=== PATIENT | male | born 1965 ===

== ENCOUNTER 2016-07-27 09:21 | Emergency (ER) | payer OTHER ==
[2016-07-27 09:56] VITALS: RESP 18; TEMP 98.1; BMI 29.0
--- NOTE | 2016-07-27 10:05 | ED PDOC ---
Lower Extremity Pain/Injury Time Seen by Provider: 07/27/16 09:50 Chief Complaint (Nursing): Lower Extremity Problem/Injury Chief Complaint (Provider): Lower Extremity Problem/Injury History Per: Patient History/Exam Limitations: no limitations Onset/Duration Of Symptoms: Days (x6 days) Current Symptoms Are (Timing): Still Present Additional Complaint(s): 51 y/o male with a past medical history of hypertension presents to the emergency department with a complaint of an ankle pain after twisting it on 07/22/2016. States he had been experiencing pain on ambulation since the injury. Past Medical History Reviewed: Historical Data, Nursing Documentation, Vital Signs Vital Signs: Last Vital Signs Temp 98.1 F 07/27/16 09:26 Pulse 68 07/27/16 09:26 Resp 18 07/27/16 09:26 BP 180/109 H 07/27/16 09:26 Pulse Ox 98 07/27/16 09:26 - Medical History PMH: HTN (no meds x 1 week as of 07/27/16), Hypercholesterolemia - Surgical History Surgical History: No Surg Hx - Family History Family History: States: Hypertension - Home Medications Home Medications: Ambulatory Orders Medication Instructions Recorded Lisinopril 20 mg PO DAILY #30 tablet 08/08/15 Lisinopril [Zestril] 50 mg PO DAILY 08/08/15 Meclizine [Meclizine*] 25 mg PO Q6 PRN #20 tab 08/08/15 Naproxen [Naprosyn] 500 mg PO Q12H #20 tab 07/27/16 - Allergies Allergies/Adverse Reactions: Allergies Allergy/AdvReac Type Severity Reaction Status Date / Time No Known Allergies Allergy Verified 07/27/16 09:36 Review of Systems ROS Statement: Except As Marked, All Systems Reviewed And Found Negative Musculoskeletal: Positive for: Other (Left ankle pain') Physical Exam - Reviewed Nursing Documentation Reviewed: Yes Vital Signs Reviewed: Yes - Physical Exam Appears: Positive for: Well, Non-toxic, No Acute Distress Head Exam: Positive for: ATRAUMATIC, NORMOCEPHALIC Skin: Positive for: Normal Color, Warm, Dry Extremity: Positive for: Normal ROM (Full), Tenderness (Left heel tenderness and swelling). Negative for: Other (No ankle swelling or tenderness) Neurologic/Psych: Positive for: Alert, Oriented - ECG O2 Sat by Pulse Oximetry: 98 (RA) Pulse Ox Interpretation: Normal Medical Decision Making Medical Decision Making: Time: 9:50 Initial impression: Left ankle injury Initial plan: --Ankle AP LAT 2 Views LT (RAD) --Foot AP LAT LT (RAD) --Revaluation Scribe Attestation: Documented by Ayanna Duffy, acting as a scribe for Jose Antonio Bravo MD. Provider Scribe Attestation: All medical record entries made by the Scribe were at my direction and personally dictated by me. I have reviewed the chart and agree that the record accurately reflects my personal performance of the history, physical exam, medical decision making, and the department course for this patient. I have also personally directed, reviewed, and agree with the discharge instructions and disposition. Disposition - Clinical Impression Clinical Impression: Ankle sprain and strain - Patient ED Disposition Is Patient to be Admitted: No - Disposition Referrals: Eileen Franklin MD [Primary Care Provider] - [facility] [Outside] Disposition: Routine/Home Disposition Time: 10:41 Condition: FAIR Prescriptions: Naproxen [Naprosyn] 500 mg PO Q12H #20 tab Instructions: Ankle Sprain (ED) Print Language: CITIZEN OF [place]
--- NOTE | 2016-07-27 11:13 | RAD ---
PROCEDURE: Left Foot Radiographs. HISTORY: trauma COMPARISON: None available. FINDINGS: BONES: No acute displaced fracture. JOINTS: No dislocation. SOFT TISSUES: Soft tissue swelling. No evidence of radiopaque foreign body. OTHER FINDINGS: None. IMPRESSION: Soft tissue swelling. No acute displaced fracture, dislocation, or significant joint effusion identified. If symptoms persist, or if there is continued clinical concern, x-ray follow-up in 7-10 days should be considered.
[2016-07-27 11:17] VITALS: BP 156/86; PULSE 80; O2SAT 100
--- NOTE | 2016-07-27 11:17 | RAD ---
PROCEDURE: Left Ankle Radiographs. HISTORY: trauma COMPARISON: None available. FINDINGS: BONES: Irregularity about the posterior distal tibia appears chronic however correlate with physical exam in order to exclude possibility of acute fracture. The remainder the visualized osseous structures appear intact. Nonspecific sclerotic lesion within the distal lateral aspect of the tibia measuring approximately 9 mm. JOINTS: No dislocation. SOFT TISSUES: Soft tissue swelling. No evidence of radiopaque foreign body. OTHER FINDINGS: None. IMPRESSION: Irregularity about the posterior distal tibia appears chronic however correlate with physical exam in order to exclude possibility of acute fracture. Soft tissue swelling. Additional findings as above.
== END 2016-07-27 11:34 | disposition home or self-care (01) ==
LOC: H.ER 09:21
DX: S93.402A Sprain of unspecified ligament of left ankle, initial encounter (principal); X50.9XXA Other and unspecified overexertion or strenuous movements or postures, initial encounter; Y92.89 Other specified places as the place of occurrence of the external cause; I10 Essential (primary) hypertension

== ENCOUNTER 2017-09-21 07:32 | Emergency (ER) | payer OTHER ==
[2017-09-21 07:36] VITALS: TEMP 97.1
[2017-09-21 07:37] VITALS: BMI 29.4
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
--- NOTE | 2017-09-21 09:41 | CT ---
Date of service: 09/21/2017 PROCEDURE: CT HEAD WITHOUT CONTRAST. HISTORY: r/o ICH COMPARISON: Comparison made with prior CT scan brain 08/08/2015 TECHNIQUE: Axial computed tomography images were obtained through the head/brain without intravenous contrast. Radiation dose: Total exam DLP = 914.65 mGy-cm. This CT exam was performed using one or more of the following dose reduction techniques: Automated exposure control, adjustment of the mA and/or kV according to patient size, and/or use of iterative reconstruction technique. FINDINGS: HEMORRHAGE: No intracranial hemorrhage. BRAIN: No mass effect or edema. No atrophy or chronic microvascular ischemic changes. VENTRICLES: Unremarkable. No hydrocephalus. CALVARIUM: Unremarkable. PARANASAL SINUSES: Unremarkable as visualized. No significant inflammatory changes. MASTOID AIR CELLS: Unremarkable as visualized. No inflammatory changes. OTHER FINDINGS: None. IMPRESSION: No acute intracranial hemorrhage.
[2017-09-21 12:48] VITALS: BP 140/82; PULSE 68; RESP 16; O2SAT 100
--- NOTE | 2017-09-21 14:47 | RAD ---
PROCEDURE: Right Hand Radiographs. HISTORY: trauma COMPARISON: None. FINDINGS: BONES: Normal. No fracture. Made of a small benign-appearing cystic changes within the lunate and possibly within the navicular and hamate bones. . JOINTS: Normal. No osteoarthritic changes. SOFT TISSUES: Normal. OTHER FINDINGS: None. IMPRESSION: No evidence acute displaced fracture nor dislocation.
== END 2017-09-21 12:48 | disposition home or self-care (01) ==
LOC: H.ER 07:32
DX: R51 Headache (principal); E78.00 Pure hypercholesterolemia, unspecified; I10 Essential (primary) hypertension
CPT/HCPCS: 70450; 73130; 82948; 96372; 99284; J1885